=== PATIENT | male | born 1975 | race Two or more races ===

== ENCOUNTER 2023-06-21 08:14 | Day surgery (SDC) | payer BC ==
[2023-06-15 11:58] VITALS: BMI 27.9
[2023-06-21 09:41] VITALS: RESP 16; TEMP 97.3
[2023-06-21 09:42] VITALS: BP 120/81; PULSE 68
== END 2023-06-21 09:51 | disposition home or self-care (01) ==
LOC: FASU-ENDO 08:14
PROVIDERS: ATTEND Internal Medicine Gastroenterology
PROC: 0DBN8ZX Excision of Sigmoid Colon, Via Natural or Artificial Opening Endoscopic, Diagnostic (ICD-10-PCS; principal; 2023-06-21 09:05)
DX: Z12.11 Encounter for screening for malignant neoplasm of colon (principal); D12.5 Benign neoplasm of sigmoid colon
CPT/HCPCS: 88305-TC